=== PATIENT | female | born 1950 | race Caucasian/White ===

== ENCOUNTER 2016-06-14 07:05 | Day surgery (SDC) | payer MEDICARE ==
[~2016-06-14] VITALS: Ht 165.1 cm; Wt 53.1 kg
[~2016-06-14 07:05] MED LIST: ALLER-CLEAR PO; BENEDRYL PO; PROP20TA5 PO; RES15 PO; SERT20OR PO; Sodium Chloride LOK Flush 10 mL Syringe IV PRN; fentaNYL-PF 50 mCg/mL 2 mL Inj IVPUSH PRN
[2016-06-14 07:33] VITALS: BP 131/92; PULSE 84; RESP 14; O2SAT 96
[2016-06-14] MEDS ORDERED: MAGN100T5 PO (07:40)
[2016-06-14] MEDS ORDERED: POTA99TA21 PO (07:40)
[2016-06-14] MEDS: 0.9% Sodium Chloride 1,000 ML IV SCH ×2 (07:59→08:26)
[2016-06-14 08:32] VITALS: BP 97/65; PULSE 76; RESP 16; O2SAT 99
[2016-06-14 08:42] VITALS: BP 99/60; PULSE 75; RESP 16; O2SAT 96
--- NOTE | 2016-06-14 09:28 | ENDO ---
[address] [address] ENDOSCOPY PROCEDURE PATIENT: CHALO CORBIN : 1950 MR#: [id number] ADMIT: 06/14/2016 JOB ID: [id number] PROCEDURE PERFORMED: Colonoscopy. INDICATION: Screening. ASA CLASSIFICATION: The patient's ASA classification is 2. MALLAMPATI SCORE: Mallampati Score is 2. MEDICATIONS: 1. Versed 3 mg. 2. Fentanyl 50 mcg. INSTRUMENT USED: PCF H180-AL PREP QUALITY: Good. PROCEDURE DETAILS: After informed consent was obtained, the patient was brought into the GI suite, where she was placed on oxygen via nasal cannula and monitored with continuous pulse oximeter, telemetry, and blood pressure monitoring. A time-out was performed. Then, she was placed in a left lateral decubitus position and medications were administered for sedation. A digital rectal exam was performed which was unremarkable. The colonoscope was then inserted into the rectum and advanced under direct visualization to the cecum, which was identified by the presence of the ileocecal valve and appendiceal orifice. Once the cecum was reached, the colonoscope was withdrawn back into the rectum as the mucosa and lumen were examined. In the rectum, retroflexion was performed. Following retroflexion, remaining air in the rectum was suctioned and procedure was completed. FINDINGS: 1. A few scattered diverticula were noted in the ascending colon. Otherwise normal exam from rectum to cecum. 2. Retroflexed views in the rectum were unremarkable. IMPRESSION: Scattered ascending colon diverticula, otherwise normal exam. RECOMMENDATIONS: Repeat colonoscopy in 5 years secondary to patient's history of colon polyps with a prior colonoscopy. COMPLICATIONS: None. ESTIMATED BLOOD LOSS: Zero.
[2016-08-24] MEDS ORDERED: TEMA15CA3 PO (09:31)
[2016-10-06] MEDS ORDERED: TRAS440V IV (12:11)
[2016-10-06] MEDS ORDERED: CARB150V9 IV (12:11)
[2016-10-06] MEDS ORDERED: ONDA-54 PO (12:11)
[2016-10-06] MEDS ORDERED: ONDA-53 PO (12:11)
[2016-10-06] MEDS ORDERED: [UNRECOGNIZED DRUG - CODE] IV (12:11)
[2016-10-06] MEDS ORDERED: PROM12.510 PO (12:11)
[2016-10-27] MEDS ORDERED: ACID CONTROL PO (10:39)
== END 2016-06-14 23:59 | disposition home or self-care (01) ==
LOC: END 07:05
PROVIDERS: ATTEND Internal Medicine Gastroenterology
DX: Z12.11 Encounter for screening for malignant neoplasm of colon (principal); Z86.010 Personal history of colon polyps; K57.92 Diverticulitis of intestine, part unspecified, without perforation or abscess without bleeding; J44.9 Chronic obstructive pulmonary disease, unspecified; F17.210 Nicotine dependence, cigarettes, uncomplicated
CPT/HCPCS: G0105; G0500; J2250; J7030

== ENCOUNTER 2016-09-13 09:04 | Day surgery (SDC) | payer MEDICARE ==
[2016-09-13] VITALS (7 sets, daily range): BP systolic 111–150; BP diastolic 71–84; PULSE 73–87; RESP 15–31; O2SAT 93–99
[~2016-09-13] VITALS: Ht 162.6 cm; Wt 55.4 kg
[2016-09-13] MEDS: Lactated Ringer's 1,000 ML IV SCH ×2 (05:22→12:09)
[~2016-09-13 09:04] MED LIST changes: +CeFAZolin Inj 2 GM in IV Premix 1 EACH IV ONE; -Sodium Chloride LOK Flush 10 mL Syringe IV PRN; -fentaNYL-PF 50 mCg/mL 2 mL Inj IVPUSH PRN
[2016-09-13] MEDS ORDERED: fentaNYL-PF 50 mCg/mL 2 mL Inj ONE (09:05)
--- NOTE | 2016-09-13 10:32 | PCM.HPANE ---
Patient Data Surgeon Admitting Provider: Attending Provider:Josesito Pratt MD Primary Care Physician:Mayur Hanna MD Other Provider:[facility] Reason for Visit Left Breast Cancer Ht/WT & BMI Height (Feet): 5 Height (Inches): 4.00 Weight (Kilograms): 55.400 Body Mass Index 20.00 Allergies Coded Allergies: meclizine (Verified Allergy, Severe, HIVES, 09/12/16) povidone (Verified Adverse Reaction, Severe, ITCHING, 09/12/16) Allergies reviewed Past Anesthesia History Anesthesia History: Denies:: Abnormal Airway, Anesthesia Reactions, Difficult Intubation, Fam Anesthesia Reaction, Fam Malignant Hypertherm, Malignant Hyperthermia Diabetes History Hx Diabetes?: No MRSA MRSA: No Medications Home Meds Incl Beta Samm: Yes (Propranolol 20mg) Date Beta Samm Taken: Sep 13, 2016 Time Beta Samm Taken: 729 Reported Medications Sertraline HCl (Zoloft)20 Mg/1 Ml Oral.conc50 Mg PO DAILY #1 BOTTLE Ref 0 06/22/15 Temazepam 15 Mg Uxzpogt41-48 Mg PO HS PRN For Insomnia 30 Days Ref 0 06/22/15 Propranolol HCl 20 Mg Cejujt69 Mg PO TID 90 Days Ref 0 06/22/15 [Benedryl] No Conflict Check25 Mg PO Q4H PRN PRN 06/22/15 [Aller-Clear] No Conflict Check10 Mg PO DAILY 06/22/15 History History of ENT Problems?: Yes HEENT History: Positive for:: Sinus Problem (ALLERGIC RHINITIS) Denies:: Abnormal Airway Cataracts Difficult Intubation Dysphagia Glaucoma Hearing Problem TMJ Denture Type: Retainer/Senior Unix Administrator (This is erroneous but required by [employer] ) Teeth Condition: No Teeth (this is erroneous but required by [employer]) Other HEENT Pertinent History: essential tremor Hx of Heart Problems?: Yes Cardiovascular History: Positive for:: Heart Murmur (GR I/ JAMES ACROSS PRECORDIUM) Irregular Heartbeat (PT REPORTS PALPITATIONS) Valvular Heart Disease (MITRAL VALVE PROLAPSE) Denies:: AICD Abdominal Aortic Aneurism Atrial Fibrillation Cardiac Surgery Chest Pain Congestive Heart Failure Coronary Artery Disease Edema Hypertension Pacemaker Peripheral Vascular Rheumatic Fever Thrombophlebitis Other Cardiac History: HX LEUKOCYTOSIS Hx of Respiratory Problem?: Yes Respiratory History: Positive for:: Asthma Cough (SMOKERS COUGH) Denies:: COPD Chest Surgery Dyspnea Emphysema Hemoptysis Oxygen Administration Pneumonia (HX BRONCHITIS) Pulmonary Embolism Tuberculosis Use of C-PAP Machine (SNORES) Use of Inhalers / NEBS Other Resp Pertinent History: none Hx Neurologic Problems?: Yes Neurological History: Denies:: Alzheimer's Disease CVA Dementia Dizziness Headaches Multiple Sclerosis Parkinson's Disease (BENIGN ESSENTIAL TREMOR) Peripheral Neuropathy Seizures TIA Other Neurological Pertinent: none Hx of GI Problems?: Yes Gastrointestinal History: Denies:: Cirrhosis Diverticulitis Gall Bladder Disease Gastroesphageal Reflux Gastrointestinal Bleeding Heartburn Hepatitis Hiatal Hernia Liver Disease Rectal Bleeding (HX COLON POLYPS) Other GI Pertinent History: S/P APPY Hx of Problems?: Yes Genitourinary History: Positive for:: Kidney Stones (S/P RT LITHOTRIPSY FOR STONE 2015) Denies:: HX of Hemodialysis (HX POLYCYSTIC KIDNEY DISEASE) Urinary Tract Infection HX of Peritoneal Dialysis: No Other Pertinent History: none Female Hx: Positive for:: Problems with Breasts? (S/P LT BREAST BX X2,LT PARTIAL MASTECTOMY 2006 ) Denies:: Currently Endometriosis Pelvic Inflammatory Hx Musculoskeletal Problems?: Yes Musculoskeletal History: Denies:: Back Injury Degenerative Joint Fibromyalgia Joint Replacement Musculoskeletal Trauma Myasthenia Gravis Osteoarthritis Rheumatoid Arthritis Systemic Lupus Other History/Comment tremor Hx of Psycho/Social Problems?: Yes Psycho Social History: Positive for:: Anxiety Hx Depression Denies:: Bipolar Disorder Suicide Attempt Other Psych Pertinent History: none Hx Surgeries?: Yes (LT BREAST BX X2,LT PARTIAL MASTECTOMY, LITHOTRIPSY.HYSTEROSCOPY/D&C,APPY) Hx Any Other Health Problems?: Yes Other History: Positive for:: Cancer (LT BREAST X2) History Blood Transfusions: Denies:: Accept Blood Products? Blood Transfuse Reaction Blood Transfusions Hx Diabetes: No Hx Alcohol Use: YesAlcoholic Drinks Per Day: 3-4/DAYHx Substance Use: No Smoking Status: Current Every Day Smoker Have You Smoked inLast 12 mo: YesApprox How Many Cigarettes/day: 1/2-3/4 PPD X 41YRS Stop/Bang S-Snoring: Do You Snore Loudly: Yes T-Tired: feel tired, fatigued: No O-Obsered: Observed not breath: No P-Blood Pressure: treated: No B- Body Mass Index > 35 kg/m2: No A- Age over 50: Yes N- Neck Large Circumference: No G- Gender Male: No WHITNEY Total Score: 2 Risk Assessment Category Category 1A: Patient has history of documented sleep apnea, and HAS NOT received any narcotic, sedative or anesthesia administration during this stay. Category 1B: Patient has history of documented sleep apnea, and HAS received any narcotic , sedative or anesthesia administration during this stay Category 2: Patient has SUSPECTED Obstructive Sleep Apnea, and HAS received any narcotic , sedative or anesthesia administration during this stay. Category 3: Patient has SUSPECTED Obstructive Sleep Apnea and HAS NOT received narcotic, sedative or anesthesia administration during this stay. Category 4: Outpatient in Procedural Areas with known sleep apnea or who screen positive for High Risk via the STOP/BANG questionnaire. Exam Exam Vital Signs Vital Signs Date Time Temp Pulse Resp B/P Pulse Ox O2 Delivery O2 Flow Rate FiO2 09/13/16 09:25 36.4 73 16 126/76 99 Room Air General Appearance: Alert HEENT/AIRWAY: MP 3 Lungs: Clear to Auscultation Heart: Exam Unremarkable Additional Information Tremor of neck Meds/Labs/Diagnostics Admission Meds Current Medications Lactated Ringer's (Lr) 1,000 ml @ 120 mls/hr Q8H20M IV Last administered on t 05:22; Start 09/13/16 at 05:00; Stop 09/13/16 at 13:19 Plan Impression Patient chart reviewed, patient interviewed and anesthestic plan with risks, benefits, and alternatives discussed, and informed consent obtained. ASA Physical Status: ASA2 Mod Systemic Disease Anesthetic Support Modalities: Hemodynamic Monitoring Anesthetic Plan: GA Bene/Risks/Altern/Consents: Yes HP Complete Prior to Induction: Yes Jacky Celaya MD Sep 13, 2016 10:32
[2016-09-13] MEDS ORDERED: Lactated Ringer's 500 ML IV PRN (12:29)
[2016-09-13] MEDS ORDERED: Lactated Ringer's 1,000 ML IV SCH (12:29)
[2016-09-13] MEDS ORDERED: Phenylephrine 10,000 mCg/mL Inj IVPUSH PRN (12:30)
[2016-09-13] MEDS ORDERED: HYDROmorphone 1 mg/mL Inj IVPUSH PRN (12:30)
[2016-09-13] MEDS ORDERED: MetoCLOpramide 5 mg/mL 2 mL Inj IVPUSH PRN (12:30)
[2016-09-13] MEDS ORDERED: Dexamethasone 4 mg/mL Inj IVPUSH PRN (12:30)
[2016-09-13] MEDS ORDERED: Ondansetron 2 mg/mL 2 mL Inj IVPUSH PRN (12:30)
[2016-09-13] MEDS ORDERED: EPHEDrine Sulfate 50 mg/mL Inj IVPUSH PRN (12:30)
[2016-09-13] MEDS ORDERED: Bupivacaine 0.5%/EPI 50 mL Inj INFILTRATE ONE (12:36)
--- NOTE | 2016-09-13 13:04 | DRSVH ---
PROCEDURE: NM SENTINEL NODE INJECTION ONLY, LEFT BREAST RADIOPHARMACEUTICAL: 0.491 mCi Millipore filtered Tc-99m sulfur colloid. INDICATIONS: LEFT BREAST CANCER PROCEDURE: The indications, alternatives, benefits, risks, and complications of the procedure were explained to the patient. Written informed consent was obtained and placed in the chart. The area around the nip ple was prepped and draped in a sterile fashion. Tc-99m sulfur colloid was injected in the outer edg e of the areola in the left breast. No image was obtained. IMPRESSION: Administration of radiotracer into the left breast periareolar region for intra-operativ e sentinel lymph node localization. Dictated by: Milena Rawls MD, PhD on 09/13/2016 at 13:02 Approved by: Milena Rawls MD, PhD on 09/13/2016 at 13:03
[2016-09-13] MEDS ORDERED: HYDROcodone-APAP 5-325 mg Tablet PO PRN (13:35)
--- NOTE | 2016-09-13 13:36 | PCM.DISURG ---
Surgical Discharge Instruction Date of Service Sep 13, 2016 Dates of Hospitalization Date of Hospital Admission Providers Admitting Physician: Primary Care Physician: Mayur Hanna MD Attending Physician: Josesito Pratt MD Discharge Diagnosis Discharge Diagnosis Left breast cancer Diet Discharge Diet: No restrictions Activity Discharge Activity-General: Activity as pain allows Dressing and Incisional Care Dressing Care: Allow Steri Stripes to fall off, Remove outer dressing after 24 hrs Hygiene: May shower after (24 hours) Additional Instructions Discharge Instructions Empty JOE drain and record output daily. Call the surgery clinic when output is less than 30 mL in a 24-hour period, and the drain can be removed at that time. Follow Up Plan Follow Up Plan With Dr. Pratt in surgery clinic in 7-10 days Call your provider for: Fever (over 101.5), Discharge @ incision, pus discharge Josesito Pratt MD Sep 13, 2016 13:36
--- NOTE | 2016-09-13 13:42 | PCM.SURGOP ---
Surgical Operative Report Date of Service: Sep 13, 2016 Pre Operative Diagnosis Left breast cancer Post Operative Diagnosis Same Procedure: Left simple mastectomy, left axillary sentinel lymph node biopsy Surgeon and Rip/Mould Operator: Surgeon: Josesito Pratt MD Assistants: Re Monsivais PA-C Indication for Procedure 66-year-old woman who has a history of left breast atypical ductal hyperplasia, excised in 2006. She had a screening mammogram in July which demonstrated an irregular asymmetry in the left breast posterior depth, seen on MLO view only. Additional views showed a 1 cm irregular density with indistinct margins. By ultrasound, the mass measured 0.9 x 1.0 x 1.1 cm. Her biopsy demonstrated invasive ductal carcinoma with solid DCIS, ER negative, AL negative, HER-2 positive (3+). After discussion of risks and benefits, she agreed to proceed with left simple mastectomy and left axillary sentinel lymph node biopsy. She was not interested in breast reconstruction. Findings: There were 2 sentinel nodes. The first sentinel node had an ex vivo count of 439. A second sentinel node had an ex vivo count of 859. The background count was 0. Procedure Details Preoperatively, the patient underwent left breast radiotracer injection for sentinel node identification. She was then brought to the operating room where she underwent smooth induction of general anesthesia. She was placed in the supine position with the left arm out, and was prepped and draped in wide sterile fashion. A procedural pause was performed according to the SCOAP checklist, and all were found to be in agreement. An elliptical skin incision was made on the left breast, encompassing the nipple areolar complex. Skin flaps were raised superiorly and inferiorly. Circumferential dissection was carried out with electrocautery as the skin and subcutaneous tissue was elevated off the underlying breast capsule. Margins of dissection were the left clavicle, the midline, the left inframammary crease, and the left anterior axillary line. The left breast was then dissected off the underlying chest wall, pectoralis fascia was resected en bloc. The left breast was oriented with suture. The left axillary tail was evaluated with the gamma probe, and there was still a good signal in left axilla. The left breast was passed off the field for permanent pathology. Because the tumor was palpable fairly close to the skin margin in the upper outer breast, a separate left breast skin margin was obtained by doing sharp dissection with Metzenbaum scissors just below the dermis. This tissue was oriented with suture, and sent for permanent pathology. Left axillary sentinel lymph node biopsy was then performed. The area of maximum radiotracer activity was identified and dissected free from the surrounding tissues using a combination of hemoclips and electrocautery. There were 2 separate sentinel nodes. The first sentinel node was excised, and its ex vivo gamma count was 439. It was sent for permanent pathology. The second sentinel node was excised, and its ex vivo gamma count was 859. This was sent for permanent pathology. Both nodes were normal in size, and soft. The background count in the left axilla was 0. A 19 Maori round JOE drain was brought out through a separate incision laterally, and secured to the skin with a 2-0 nylon stitch. The skin incision was closed with interrupted deep dermal 3-0 Vicryl sutures, and a running 4-0 Vicryl subcuticular stitch. Steri-Strips and sterile dressings were applied. At the end of the case all needle and sponge counts were correct 2. The patient was awakened from anesthesia without difficulty, and taken to the recovery room in satisfactory condition, having tolerated the procedure well. Complications There were no periprocedural complications identified. Surgical Specimen Removed: Yes Specimen sent to Pathology: Yes Surgical Specimen description: Left breast. Left breast skin margin. Left axillary sentinel node #1. Left axillary sentinel node #2. Anesthetic Plan: GA Grafts, Implants: None Output, Estimated Blood Loss: 10 Blood Administration during marquez: No Drains: JOE Drain #1 Catheters: None copies to: Stephie Cordero; Mayur Hanna MD; Jan Townsend MD, Joshua D MD Sep 13, 2016 13:42
--- NOTE | 2016-09-13 13:54 | PCM.ANEP1 ---
Post Anesthesia Phase 1 PACU Phase 1 Assessment Date of Service: Sep 13, 2016 Vital Signs Vital Signs Date Time Temp Pulse Resp B/P Pulse Ox O2 Delivery O2 Flow Rate FiO2 09/13/16 09:25 36.4 73 16 126/76 99 Room Air Anesthetic Administered: GA Level of Alertness: Awake, talking LAZARO's with Equal Strength: Yes Pain: No Nausea or Vomiting: No Cardiovascular Function and Hy: Yes Oxygen Delivery: Room Air Lungs: Clear to Auscultation Dermatome Level: Full Sensation Complications: No Follow up Care: No Patient Instructions Provided: Yes Yomi,Jacky Troncoso MD Sep 13, 2016 13:54
[2016-09-13] MEDS: fentaNYL-PF 50 mCg/mL 2 mL Inj IVPUSH PRN ×2 (14:00→14:09)
--- NOTE | 2016-09-16 10:33 | PATH ---
SURGICAL PATHOLOGY Attending Physician:Phill Santamaria CASE STATUS: Signed Out * Amended * PATIENT NAME: CHALO CORBIN PID: [id number] : 1950 DATE COLLECTED:09/13/2016 00:00 SPECIMEN: 1: Breast, Simple Mastectomy (lymph nodes submitted separately) 2: Breast Margin 3: [place] Lymph Node 4: [place] Lymph Node CLINICAL HISTORY: LEFT BREAST CANCER 1). LEFT BREAST, SHORT STITCH SUPERIOR LONG LATERAL, OOB 13:02 TIF 13:04 2). LEFT BREAST SKIN MARGIN OOB 13:05 TIF 13:06 3). SENTINEL NODE #1 LEFT AXILLARY OOB 13:08 TIF 13:10 4). SENTINEL NODE #2 LEFT AXILLARY OOB 13:15 TIF 13:16 FINAL DIAGNOSIS: 1.LEFT BREAST: INVASIVE CARCINOMA OF THE BREAST (SEE CAP CANCER CASE SUMMARY BELOW). CAP CANCER CASE SUMMARY INVASIVE CARCINOMA OF THE BREAST: PROCEDURE: SIMPLE MASTECTOMY LYMPH NODE SAMPLIN SENTINEL LYMPH NODES (SEE PARTS 3 AND 4) SPECIMEN LATERALITY: LEFT TUMOR SITE: UPPER OUTER QUADRANT TUMOR SIZE: 1.1 X 1.1 X 0.9 CM HISTOLOGIC TYPE: INVASIVE DUCTAL CARCINOMA HISTOLOGIC GRADE: TANNA HISTOLOGIC SCORE 9 OF 9 Glandular/Tubular differentiation: Score 3 of 3 Nuclear Pleomorphism: Score 3 of 3 Mitotic Rate: Score 3 of 3 Overall Grade: Grade 3 of 3 (High grade) TUMOR FOCALITY: SINGLE FOCUS DUCTAL CARCINOMA IN SITU: Size (Extent) of DCIS: MULTIPLE MICROSCOPIC FOCI WITHIN AND ADJACENT TO TUMOR Architectural patterns: SOLID Nuclear grade: Grade HIGH Necrosis: POSITIVE MACROSCOPIC AND MICROSCOPIC EXTENT OF TUMOR SKIN: NEGATIVE NIPPLE: NEGATIVE SKELETAL MUSCLE: MINIMAL AMOUNT PRESENT AND NEGATIVE FOR TUMOR MARGINS INVASIVE CARCINOMA: Anterior: 0.2 CM Posterior: 0.5 CM Superior: 4.5 CM Inferior: 8.5 CM Medial: 9.8 CM Lateral: 1.8 CM DUCTAL CARCINOMA IN SITU: Anterior: 0.5 CM Posterior: 0.5 CM ALL OTHER MARGINS GREATER THAN 1.0 CM LYMPH NODES Total number of lymph nodes examined: 2 Number of sentinel lymph nodes examined: 2 Lymph Node Involvement: Number of lymph nodes with macrometastases: 1 Number of lymph nodes with micrometastases: 0 Extranodal Extension: NEGATIVE Method of Evaluation of [place] Lymph Nodes: SERIAL SECTIONS LYMPH-VASCULAR INVASION: FOCALLY POSITIVE DERMAL LYMPH-VASCULAR INVASION: NEGATIVE PATHOLOGIC STAGING: AJCC, 7th ed., 2010 PRIMARY TUMOR: pT1c REGIONAL LYMPH NODES: pN1a (sn) ADDITIONAL FINDINGS: Positive for perineural space invasion. ANCILLARY STUDIES: Biomarkers Performed Previously on Case: Estrogen Receptor (ER) Status: NEGATIVE Progesterone Receptor (PgR) Status: NEGATIVE HER2 (by immunohistochemistry): POSITIVE (SEE [id number]) Amended diagnosis - see amendment comment. 2.LEFT BREAST SKIN MARGIN: NEGATIVE FOR MALIGNANCY. 3.SENTINEL LYMPH NODE #1, LEFT: POSITIVE FOR METASTATIC CARCINOMA WITH NO EVIDENCE OF EXTRANODAL EXTENSION. AMENDED DIAGNOSIS METASTATIC FOCUS MEASURES 0.3 CM. 4.SENTINEL LYMPH NODE #2, LEFT: NEGATIVE FOR MALIGNANCY. ICD10 CODE C50.412 NOTE: AMENDMENT In the original report of this breast excisional specimen, it was stated that the immunohistochemistry results for Her2-Talita were negative by immunohistochemistry. This information was obtained from the surgical operative report. Review of the actual previous biopsy report ([id number]) indicates that the Her2 immunohistochemistry was actually positive at 3+. This amended report is issued at this time in order to make this correction. The other diagnostic information is unchanged. GROSS DESCRIPTION: The specimens are received in formalin, labeled with the patient's name, and sublabeled as the following: (1) left breast; (2) left breast skin margin; (3) sentinel node #1-left axillary; (4) sentinel node #2-left axillary. (1) the specimen consists of a left breast (3.3 cm AP, 15.5 cm SI, 12.5 cm ML) partially covered by skin (5.5 cm SI, 12.2 cm ML) with nipple/areola complex (3.0 x 2.2 cm). The specimen is oriented with 2 black sutures (short-superior, long-lateral). The axillary tail is absent. No localization wire is present. The specimen is serially sectioned ML into 37 slices within medial and lateral resection margins as slices #1 and #37 respectively. The breast tissue is fibrofatty and contains a reyes-white solid firm irregular mass (1.1 x 1.1 x 0.9 cm the) which correlates with the surgical operative notes. The mass, within slices #31-#32, is 0.5 cm on the anterior, 0.5 cm from the posterior, 4.5 cm from the superior, 8.5 cm from the inferior, 9.8 cm from the medial, and 1.8 cm from the lateral resection margins. No nodules, masses or lesions are identified. The skin and nipple/areola complex are ash-white and unremarkable. Ink code: *black-anterior; yellow-posterior; *purple-superior; orange-inferior; green-medial; blue-lateral. *Please note the anterior and superior are not inked as per usual ink code. Section code: (1A) nipple; (1B) skin, financial service representative; (1C) medial resection margin, perpendicularly sectioned, financial service representative; (1D) slice #11, financial service representative; (1E) slice #13, financial service representative; (1F) slice #21, financial service representative; (1G) slice #25, financial service representative; (1H) slice #30, tissue adjacent to mass, financial service representative; (1I) slice #31, financial service representative; (1J-1K) slice #32, financial service representative further spliced; (1L) slice #33, tissue adjacent to mass, financial service representative; (1M) lateral resection margin, perpendicularly sectioned, financial service representative. (2) The specimen consists of a piece of breast tissue (0.7 cm AP, 3.5 cm SI, 2.8 cm ML) with no overlying skin. The specimen is oriented with 2 black sutures (short-superior, long-lateral). No localization wire is present. The breast tissue is fatty with no nodules, masses or lesions identified. Ink code: purple-anterior; yellow-posterior; black-superior; orange-inferior; green-medial; blue-lateral. Section code: (2A-2C) breast tissue, saline sectioned and submitted SI. Specimen entirely submitted. (3) The specimen consists of a lymph node (1.0 x 0.6 x 0.5 cm). Section code: (3A) one lymph node, serially sectioned. Specimen entirely submitted. (4) The specimen consists of a lymph node (1.2 x 0.7 x 0.7 cm) with attached adipose tissue. Section code: (4A) one lymph node, serially sectioned. Specimen entirely submitted. Note: Approximate total fixation time in formalin-52 hours and 30 minutes using a collection date of September 13, 2016 with times in fixative of 5303-5739. 09/15/16 JM MICRO DESCRIPTION: See diagnosis. ICD-9 CODES: CPT CODES: 1: 02261 2: 17999 3: 43769 4: 38923 PROCEDURE/ADDENDA: Addendum SPI Addendum Diagnosis {Not Entered} Addendum Comment This addendum report is dictated at this time in order to add the size of the metastatic focus in sentinel lymph node #1 (part 3). The metastatic focus measures 0.3 cm. Electronically Signed Out Mahin Pineda MD AMENDMENT(S): Amended: 09/20/2016 by Chey Barton Reason:Amended Diagnosis Previous Signout Date: 09/16/2016 Amended: 09/23/2016 by Chey Barton Reason:Amended Diagnosis Previous Signout Date: 09/20/2016 Electronically Signed Out Mahin Pineda MD [facility] Pathology [facility] [address], [place] [address] Technical component performed at [facility], [address] [place] [address] Ave[address], [place], [address]
[2016-10-06] MEDS ORDERED: ONDA-54 PO (12:11)
[2016-10-06] MEDS ORDERED: CARB150V9 IV (12:11)
[2016-10-06] MEDS ORDERED: PROM12.510 PO (12:11)
[2016-10-06] MEDS ORDERED: [UNRECOGNIZED DRUG - CODE] IV (12:11)
[2016-10-06] MEDS ORDERED: ONDA-53 PO (12:11)
[2016-10-06] MEDS ORDERED: TRAS440V IV (12:11)
[2016-10-27] MEDS ORDERED: ACID CONTROL PO (10:39)
== END 2016-09-13 23:59 | disposition home or self-care (01) ==
LOC: SAS 09:04
PROVIDERS: ATTEND Student in an Organized Health Care Education/Training Program
DX: C50.412 Malignant neoplasm of upper-outer quadrant of left female breast (principal); F17.210 Nicotine dependence, cigarettes, uncomplicated; G25.0 Essential tremor; J45.909 Unspecified asthma, uncomplicated; F41.9 Anxiety disorder, unspecified; F32.9 Major depressive disorder, single episode, unspecified; Z87.442 Personal history of urinary calculi; Z17.1 Estrogen receptor negative status [ER-]
CPT/HCPCS: 19303; 38525; 38792; A9541; J0690; J3010; J7120

== ENCOUNTER 2016-10-05 12:13 | Day surgery (SDC) | payer MEDICARE ==
[2016-10-05] VITALS (8 sets, daily range): BP systolic 104–127; BP diastolic 53–74; PULSE 66–90; RESP 12–16; O2SAT 90–100
[~2016-10-05] VITALS: Ht 162.6 cm; Wt 53.8 kg
[2016-10-05] MEDS ORDERED: Vasopressin 20 Unit/mL Inj ONE (12:14)
[2016-10-05] MEDS ORDERED: EPHEDrine/NS 5 mg/mL 5 mL Syringe ONE (12:14)
[2016-10-05] MEDS ORDERED: MetoCLOpramide 5 mg/mL 2 mL Inj ONE (12:14)
[2016-10-05] MEDS ORDERED: Phenylephrine/NS 100 mCg/mL 10 mL Syringe IVPUSH ONE (12:14)
[2016-10-05] MEDS ORDERED: Dexamethasone 4 mg/mL Inj ONE (12:14)
[2016-10-05] MEDS ORDERED: Ondansetron 2 mg/mL 2 mL Inj ONE (12:14)
[2016-10-05] MEDS ORDERED: Propofol 10,000 mCg/mL 20 mL Inj ONE (12:14)
[2016-10-05] MEDS ORDERED: CeFAZolin Inj 2 gm / 50mL D5W IV ONE (13:08)
[2016-10-05] MEDS: Lactated Ringer's 1,000 ML IV SCH ×4 (13:28→16:00)
--- NOTE | 2016-10-05 13:29 | PCM.HPANE ---
Patient Data Date of Service: October 05, 2016 Surgeon Admitting Provider: Attending Provider:Josesito Pratt MD Primary Care Physician:Mayur Hanna MD Other Provider:Alfredo Espino Anesthesia Reason for Visit Left Breast Cancer Ht/WT & BMI Height (Feet): 5 Height (Inches): 4 Weight (Kilograms): 53.8 Body Mass Index 20.00 Allergies Coded Allergies: meclizine (Verified Allergy, Severe, HIVES, 10/05/16) PT STATES SHE TAKES BENADRYL AT HOME povidone (Verified Adverse Reaction, Severe, ITCHING, 10/04/16) Past Anesthesia History Anesthesia History: Denies:: Abnormal Airway, Anesthesia Reactions, Difficult Intubation, Fam Anesthesia Reaction, Fam Malignant Hypertherm, Malignant Hyperthermia Diabetes History Hx Diabetes?: No MRSA MRSA: No Medications Home Meds Incl Beta Samm: Yes Date Beta Samm Taken: October 05, 2016 Time Beta Samm Taken: 1130 Reported Medications Acetaminophen/Diphenhydramine (Tylenol Pm Ex-Strength Caplet)500 Mg-25 Mg Tablet1 Each PO 10/05/16 Sertraline HCl (Zoloft)20 Mg/1 Ml Oral.conc50 Mg PO DAILY #1 BOTTLE Ref 0 06/22/15 Temazepam 15 Mg Lnsyobt55-14 Mg PO HS PRN For Insomnia 30 Days Ref 0 06/22/15 Propranolol HCl 20 Mg Ualgwm49 Mg PO TID 90 Days Ref 0 06/22/15 [Benedryl] No Conflict Check25 Mg PO Q4H PRN PRN 06/22/15 [Aller-Clear] No Conflict Check10 Mg PO DAILY 06/22/15 History History of ENT Problems?: Yes HEENT History: Positive for:: Sinus Problem (ALLERGIC RHINITIS) Denies:: Abnormal Airway Cataracts Difficult Intubation Dysphagia Hearing Problem TMJ Denture Type: None Teeth Condition: Tooth Decay Hx of Heart Problems?: Yes Cardiovascular History: Positive for:: Chest Pain (C/OF PLEURITIC CHEST PAIN RADIATING TO BACK) Heart Murmur (GR I/ JAMES ACROSS PRECORDIUM) Irregular Heartbeat (PT REPORTS PALPITATIONS) Valvular Heart Disease (MITRAL VALVE PROLAPSE) Denies:: AICD Abdominal Aortic Aneurism Atrial Fibrillation Cardiac Surgery Congestive Heart Failure Edema Hypertension Pacemaker Rheumatic Fever Thrombophlebitis Other Cardiac History: HX LEUKOCYTOSIS; states she has been taking propanolol since the s for her MVP Hx of Respiratory Problem?: Yes Respiratory History: Positive for:: Asthma COPD (HX CHRONIC AIRWAY OBSTRUCTION) Cough (SMOKERS COUGH) Denies:: Chest Surgery Dyspnea Emphysema Hemoptysis Oxygen Administration Pneumonia (HX BRONCHITIS) Pulmonary Embolism Tuberculosis Use of C-PAP Machine (SNORES) Hx Neurologic Problems?: Yes Neurological History: Positive for:: Parkinson's Disease (torticollis (denies essential tremor)) Denies:: Alzheimer's Disease CVA Dementia Dizziness Headaches Multiple Sclerosis Seizures Hx of GI Problems?: Yes Other GI Pertinent History: S/P APPY Hx of Problems?: Yes Genitourinary History: Positive for:: Kidney Stones (S/P RT LITHOTRIPSY FOR STONE 2015) Denies:: HX of Hemodialysis (HX POLYCYSTIC KIDNEY DISEASE) Urinary Tract Infection HX of Peritoneal Dialysis: No Female Hx: Positive for:: Problems with Breasts? (S/P LT BREAST BX X2,LT PARTIAL MASTECTOMY 2006,2016 ) Denies:: Currently Endometriosis Pelvic Inflammatory Skin History: Denies:: History Skin Disorders? Pressure Ulcers Hx Musculoskeletal Problems?: Yes Musculoskeletal History: Denies:: Back Injury Degenerative Joint Joint Replacement Musculoskeletal Trauma Systemic Lupus Hx of Psycho/Social Problems?: Yes Psycho Social History: Positive for:: Anxiety Hx Depression Denies:: Bipolar Disorder Suicide Attempt Hx Surgeries?: Yes (LT BREAST BX X2,LT PARTIAL MASTECTOMY X2, LITHOTRIPSY.HYSTEROSCOPY/D&C,APPY) Hx Any Other Health Problems?: Yes Other History: Positive for:: Cancer (LT BREAST X2) Denies:: Endocrine Disease Hospitalization Thyroid Disease History Blood Transfusions: Denies:: Blood Transfuse Reaction Blood Transfusions Hx Diabetes: No Hx Alcohol Use: YesAlcoholic Drinks Per Day: 3-4/DAYHx Substance Use: No Smoking Status: Current Every Day Smoker Have You Smoked inLast 12 mo: YesApprox How Many Cigarettes/day: 1/2-3/4 PPD X 41YRS Stop/Bang S-Snoring: Do You Snore Loudly: Yes T-Tired: feel tired, fatigued: No O-Obsered: Observed not breath: No P-Blood Pressure: treated: No B- Body Mass Index > 35 kg/m2: No A- Age over 50: Yes N- Neck Large Circumference: No G- Gender Male: No WHITNEY Total Score: 2 WHITNEY Risk Assessment: Low Risk, <3 Yes Risk Assessment Category Category 1A: Patient has history of documented sleep apnea, and HAS NOT received any narcotic, sedative or anesthesia administration during this stay. Category 1B: Patient has history of documented sleep apnea, and HAS received any narcotic , sedative or anesthesia administration during this stay Category 2: Patient has SUSPECTED Obstructive Sleep Apnea, and HAS received any narcotic , sedative or anesthesia administration during this stay. Category 3: Patient has SUSPECTED Obstructive Sleep Apnea and HAS NOT received narcotic, sedative or anesthesia administration during this stay. Category 4: Outpatient in Procedural Areas with known sleep apnea or who screen positive for High Risk via the STOP/BANG questionnaire. Exam Exam Vital Signs Vital Signs Date Time Temp Pulse Resp B/P Pulse Ox O2 Delivery O2 Flow Rate FiO2 10/05/16 12:41 36.3 77 16 127/69 97 Room Air General Appearance: Alert, Oriented X3, Cooperative, No Acute Distress HEENT/AIRWAY: MP 3, Neck Movement (FROM), Mouth Opening (3), Other (TMD3) Lungs: Diminished Heart: Exam Unremarkable, Regular Rate/Rhythm, Normal S1, Normal S2, Murmur (3/ 6 systolic murmur) Plan Impression Patient chart reviewed, patient interviewed and anesthestic plan with risks, benefits, and alternatives discussed, and informed consent obtained. ASA Physical Status: ASA3 Severe Disease Anesthetic Plan: GA Bene/Risks/Altern/Consents: Yes HP Complete Prior to Induction: Yes Raymundo Greenfield MD October 05, 2016 13:29
[2016-10-05] MEDS ORDERED: ACET-2605 PO (13:31)
[2016-10-05] MEDS ORDERED: Bupivacaine-MPF 0.25%/EPI 30 mL Inj INFILTRATE ONE (14:08)
[2016-10-05] MEDS ORDERED: Lactated Ringer's 500 ML IV PRN (14:29)
[2016-10-05] MEDS ORDERED: fentaNYL-PF 50 mCg/mL 2 mL Inj IVPUSH PRN (14:30)
[2016-10-05] MEDS ORDERED: Ketorolac 15 mg/mL Inj IVPUSH PRN (14:30)
[2016-10-05] MEDS ORDERED: EPHEDrine Sulfate 50 mg/mL Inj IVPUSH PRN (14:30)
[2016-10-05] MEDS ORDERED: HYDROmorphone 1 mg/mL Inj IVPUSH PRN (14:30)
[2016-10-05] MEDS ORDERED: MetoCLOpramide 5 mg/mL 2 mL Inj IVPUSH PRN (14:30)
[2016-10-05] MEDS ORDERED: HYDROcodone-APAP 5-325 mg Tablet PO PRN (14:30)
[2016-10-05] MEDS ORDERED: Dexamethasone 4 mg/mL Inj IVPUSH PRN (14:30)
[2016-10-05] MEDS ORDERED: Phenylephrine 10,000 mCg/mL Inj IVPUSH PRN (14:30)
[2016-10-05] MEDS ORDERED: Ondansetron 2 mg/mL 2 mL Inj IVPUSH PRN (14:30)
--- NOTE | 2016-10-05 14:34 | PCM.SURGOP ---
Surgical Operative Report Date of Service: October 05, 2016 Pre Operative Diagnosis Left breast cancer Post Operative Diagnosis Same Procedure: Tunneled left subclavian central venous catheter with power port, intraoperative fluoroscopy with interpretation Surgeon and Eradicator: Surgeon: Josesito Pratt MD Assistants: None Indication for Procedure 66-year-old woman who recently underwent a left partial mastectomy and left axillary sentinel lymph node biopsy. Pathology showed a 1.1 cm poorly differentiated tumor, with one sentinel node positive without extracapsular extension. She was recommended to receive adjuvant chemotherapy. After discussion of risks and benefits of Port-A-Cath placement, she agreed to proceed. Findings: The catheter tip was positioned at the cavoatrial junction, confirmed with fluoroscopy. The port was left accessed, as she will be receiving chemotherapy tomorrow. Procedure Details After smooth induction of general endotracheal anesthesia, the patient was positioned in the supine position with both arms tucked. The patient was prepped and draped in wide sterile fashion. A procedural pause was performed according to the SCOAP checklist, and all were found to be in agreement. The patient was placed in Trendelenburg position. The left subclavian vein was accessed with a finder needle in a single pass, and the 0.035 inch wire was passed into the vena cava. It was confirmed with fluoroscopy. A subcutaneous pocket was created on the left upper chest wall using electrocautery. The port reservoir was secured to the fascia with interrupted 3-0 Vicryl sutures. The catheter was connected to the tunneler, and tunneled under the subcutaneous tissue to the venipuncture site. The introducer sheath and dilator was passed over the wire under fluoroscopic guidance. The catheter was then passed through the tear-away sheath into the vena cava. The sheath was removed. The catheter was then pulled back under fluoroscopic guidance until the tip was positioned at the cavoatrial junction. The catheter was cut to size, and connected to the port reservoir. The port was accessed using a Infante needle, which aspirated and flushed easily. The port was then flushed with the final heparin flush, consisting of 100 units per mL, a total of 4 mL. A final fluoroscopic image confirmed that the port was in good position with no kinks, and there was no evidence of pneumothorax. The port was left accessed, as she will be receiving chemotherapy tomorrow. The incision was closed with a running 4-0 Monocryl subcuticular stitch. Steri-Strips and sterile dressings were applied. At the end of the case all needle and sponge counts were correct 2. The patient was awakened from anesthesia without difficulty, and taken to the recovery room in satisfactory condition, having tolerated the procedure well. Complications There were no periprocedural complications identified. Surgical Specimen Removed: No Specimen sent to Pathology: Not applicable Anesthetic Plan: GA Grafts, Implants: Implants-See Implant Record Output, Estimated Blood Loss: 5 Blood Administration during marquez: No Drains: None Catheters: None copies to: Mayur Hanna MD; Jan Townsend MD, Joshua D MD October 05, 2016 14:34
--- NOTE | 2016-10-05 14:36 | PCM.DISURG ---
Surgical Discharge Instruction Date of Service October 05, 2016 Dates of Hospitalization Date of Hospital Admission Providers Admitting Physician: Primary Care Physician: Mayur Hanna MD Attending Physician: Josesito Pratt MD Discharge Diagnosis Discharge Diagnosis left breast cancer Post Operative diagnosis Same Diet Discharge Diet: No restrictions Activity Discharge Activity-General: No restrictions Dressing and Incisional Care Dressing Care: Keep dressing clean, dry & intact (until tomorrow, then may shower) Follow Up Plan Follow Up Plan with Dr. Townsend as directed. Call your provider for: Fever (over 101.5F), Discharge @ incision, pus discharge Josesito Pratt MD October 05, 2016 14:36
[2016-10-05] MEDS ORDERED: Famotidine 20 mg/50 mL NS Premix IV ONE (14:42)
[2016-10-05] MEDS ORDERED: Famotidine 10 mg/mL 2 mL Inj IVPUSH ONE (14:45)
--- NOTE | 2016-10-06 01:01 | PCM.ANEP1 ---
Post Anesthesia Phase 1 PACU Phase 1 Assessment Date of Service: October 05, 2016 Vital Signs HR 92 BP 112/74 SaO2 99% R17 T 36.3C Anesthetic Administered: GA Level of Alertness: Awake, talking LAZARO's with Equal Strength: Yes Pain: No Pain Scale Score: 0 Nausea or Vomiting: No Cardiovascular Function and Hy: Yes Oxygen Delivery: Simple Mask Lungs: Diminished Complications: No Follow up Care: No Patient Instructions Provided: Yes Raymundo Greenfield MD October 06, 2016 01:01
[2016-10-06] MEDS ORDERED: ONDA-54 PO (12:11)
[2016-10-06] MEDS ORDERED: [UNRECOGNIZED DRUG - CODE] IV (12:11)
[2016-10-06] MEDS ORDERED: ONDA-53 PO (12:11)
[2016-10-06] MEDS ORDERED: TRAS440V IV (12:11)
[2016-10-06] MEDS ORDERED: CARB150V9 IV (12:11)
[2016-10-06] MEDS ORDERED: PROM12.510 PO (12:11)
[2016-10-27] MEDS ORDERED: ACID CONTROL PO (10:39)
== END 2016-10-05 23:59 | disposition home or self-care (01) ==
LOC: SAS 12:13
PROVIDERS: ATTEND Student in an Organized Health Care Education/Training Program
DX: C50.412 Malignant neoplasm of upper-outer quadrant of left female breast (principal); G25.0 Essential tremor; J44.9 Chronic obstructive pulmonary disease, unspecified; F17.210 Nicotine dependence, cigarettes, uncomplicated; Z90.12 Acquired absence of left breast and nipple
CPT/HCPCS: 36561; 77001; C1788; J0690; J1100; J1200; J1642; J1885; J2250; J2370; J2405; J2765; J7120